=== PATIENT | female | born 1995 | race Two or more races ===

== ENCOUNTER 2020-10-23 12:22 | Outpatient (CLI) | payer OTHER | END 2020-10-23 14:04 | disposition home or self-care (01) | LOC: OFIC 805 12:22 | PROVIDERS: ATTEND Otolaryngology Otology & Neurotology | DX: J30.89 Other allergic rhinitis (principal); R09.81 Nasal congestion; J34.2 Deviated nasal septum; J35.2 Hypertrophy of adenoids ==